=== PATIENT | male | born 1990 | race Caucasian/White ===

== ENCOUNTER 2016-07-27 02:14 | Emergency (ER) | payer BC, OTHER ==
[~2016-07-27] VITALS: Ht 172.7 cm; Wt 81.6 kg
--- NOTE | 2016-07-27 02:14 | NUR ---
BIB [facility] TO ER OF1
[2016-07-27 02:18] VITALS: BP 154/86
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
--- NOTE | 2016-07-27 02:37 | NUR ---
PHYSICIAN EVALUATING PATIENT IN OF
[2016-07-27] MEDS ORDERED: METHOCARBAMOL 500 MG TAB PO ONE (02:40)
[2016-07-27] MEDS ORDERED: IBUPROFEN 600 MG TAB PO ONE (02:40)
--- NOTE | 2016-07-27 02:55 | NUR ---
PATIENT BIB [facility]. PATIENT EXAMINED BY DR. MARQUIS. PATIENT MEDICALLY CLEARED AND RELEASED IN CUSTODY IN STABLE CONDITION. ORIGINAL PRE-BOOK FORM GIVEN TO [facility]. RX.OF MOTRIN 600 MG GIVEN.
[2016-07-27 02:56] VITALS: BP 140/84
== END 2016-07-27 02:55 ==
LOC: MED 02:14
DX: Z02.89 Encounter for other administrative examinations (principal); S39.012A Strain of muscle, fascia and tendon of lower back, initial encounter; F10.20 Alcohol dependence, uncomplicated; V89.2XXA Person injured in unspecified motor-vehicle accident, traffic, initial encounter; Y93.89 Activity, other specified; Y92.89 Other specified places as the place of occurrence of the external cause; Y99.8 Other external cause status